=== PATIENT | male | born 1975 | race Caucasian/White ===

== ENCOUNTER 2017-05-31 17:41 | Inpatient (IN) | payer BC ==
[~2017-05-31] VITALS: Ht 167.6 cm; Wt 84.1 kg
[2017-05-31 19:04] LABS: BASOPHIL % 0.4 % (0-2); PLATELET COUNT 188 x10^3mcL (130-400); RED CELL DISTRIBUTION WIDTH 13.8 % (11.5-14.5)
[2017-05-31 19:12] LABS: AMPHETAMINE QUAL UR NONE DETECTED (NEG <=1000)
[2017-05-31 19:15] LABS: CALCIUM 8.9 mg/dL (8.5-10.1); CHLORIDE SERUM 105 mmol/L (98-107); CREATININE SERUM 0.8 mg/dL (0.7-1.3); GFR1 > 60 mL/min; GLUCOSE SERUM 106 mg/dL (74-106); POTASSIUM SERUM 3.4 mmol/L (3.5-5.1); SODIUM SERUM 143 mmol/L (136-145)
[2017-05-31 19:19] LABS: ALKALINE PHOSPHATASE 98 U/L (46-116); ALT/SGPT 23 U/L (16-63); AST/SGOT 18 U/L (15-37); BILIRUBIN TOTAL 0.64 mg/dL (0.20-1.00); MAGNESIUM 2.2 mg/dL (1.8-2.4); TOTAL PROTEIN, SERUM 7.9 g/dL (6.4-8.2)
[2017-05-31 19:35] LABS: FREE THYROXINE INDEX 2.9 ug/dL (1.4-4.5); T4(THYROXINE) 8.3 ug/dL (4.7-13.3)
[2017-05-31 20:55] LABS: microscopic required? NO
[2017-05-31 21:05] LABS: UA SPECIFIC GRAVITY <=1.005 (1.005-1.035); urine erythrocyte NEGATIVE (NEGATIVE)
[2017-05-31 21:23] LABS: PHOSPHOROUS 3.6 mg/dL (2.5-4.9)
[2017-06-01] VITALS (8 sets, daily range): BP systolic 79–139; BP diastolic 50–93; Ht 167.6 cm; Wt 84.1 kg
[2017-06-01 05:55] LABS: BASOPHIL % 0.5 % (0-2); PLATELET COUNT 168 x10^3mcL (130-400); RED CELL DISTRIBUTION WIDTH 13.8 % (11.5-14.5)
[2017-06-01 06:12] LABS: CALCIUM 8.6 mg/dL (8.5-10.1); CARBON DIOXIDE 23.9 mmol/L (21-32); CHLORIDE SERUM 107 mmol/L (98-107); CREATININE SERUM 0.8 mg/dL (0.7-1.3); GFR1 > 60 mL/min; GLUCOSE SERUM 97 mg/dL (74-106); PHOSPHOROUS 3.8 mg/dL (2.5-4.9); POTASSIUM SERUM 3.7 mmol/L (3.5-5.1); SODIUM SERUM 140 mmol/L (136-145)
[2017-06-02 06:35] LABS: BASOPHIL % 0.5 % (0-2); PLATELET COUNT 184 x10^3mcL (130-400); RED CELL DISTRIBUTION WIDTH 13.7 % (11.5-14.5)
[2017-06-02 06:36] LABS: CALCIUM 8.6 mg/dL (8.5-10.1); CARBON DIOXIDE 27.4 mmol/L (21-32); CHLORIDE SERUM 106 mmol/L (98-107); CREATININE SERUM 0.9 mg/dL (0.7-1.3); GFR1 > 60 mL/min; GLUCOSE SERUM 97 mg/dL (74-106); PHOSPHOROUS 3.9 mg/dL (2.5-4.9); POTASSIUM SERUM 3.6 mmol/L (3.5-5.1); SODIUM SERUM 141 mmol/L (136-145)
[2017-06-02 06:39] VITALS: BP 109/68
[2017-06-02 09:37] VITALS: BP 102/71
[2017-06-02] MEDS ORDERED: [UNRECOGNIZED DRUG - CODE] PO (10:07)
[2017-06-02] MEDS ORDERED: LIPI10 PO (10:07)
[2017-06-02] MEDS ORDERED: METOPROLOL TART25 M1 PO (10:08)
[2017-06-02 11:25] VITALS: BP 102/71
[2017-06-02 13:33] VITALS: BP 102/63
== END 2017-06-02 15:13 | disposition home or self-care (01) | DRG 310 ==
LOC: ED 17:41 → IC 20:25 → DU 06-01 18:10 → IC 06-01 18:11 → DU 06-01 18:26
PROVIDERS: Emergency Medicine; Family Medicine
DX: I48.91 Unspecified atrial fibrillation (principal); M94.0 Chondrocostal junction syndrome [Tietze]; E87.6 Hypokalemia; R73.03 Prediabetes; E66.3 Overweight; Z68.29 Body mass index [BMI] 29.0-29.9, adult; E78.5 Hyperlipidemia, unspecified; K21.9 Gastro-esophageal reflux disease without esophagitis
CPT/HCPCS: 83880; 84439; J0153; J2060; J3490; J7030; Q0092